=== PATIENT | female | born 1980 | race Caucasian/White ===

== ENCOUNTER → 2016-04-10 | Outpatient (CLI) | payer OTHER ==
[~2016-04-10] MED LIST: LEVO100T PO; MULT-506 PO
[2016-04-10 14:54] LABS: PREG INTERNAL NEGATIVE QC NEG CLEAR BACKGROUND; PREG INTERNAL POSITIVE QC POS CONTROL LINE
== END | disposition home or self-care (01) ==
LOC: C.LAB1850 14:15
PROVIDERS: ATTEND Obstetrics & Gynecology
DX: Z30.09 Encounter for other general counseling and advice on contraception (principal)

== ENCOUNTER → 2016-07-18 | Outpatient (CLI) | payer OTHER ==
--- NOTE | 2016-07-18 13:17 | DIAGNOSTIC IMAGING REPORT ---
CHEST 2 VIEWS ROUTINE CLINICAL HISTORY: COUGH dyspnea COMPARISON STUDY: 03/06/2015 FINDINGS: The bones soft tissues and hemidiaphragms are normal. The cardiomediastinal silhouette is normal. The lungs are clear. The pulmonary vasculature is normal. IMPRESSION: Negative chest. Electronically signed by: Rashel Hanley M.D. 07/18/2016 1:15 PM Dictated Date/Time: 07/18/2016 1:14 PM
== END ==
LOC: C.RAD1850 12:59
PROVIDERS: ATTEND Nurse Practitioner Family
DX: R05 Cough (principal); R06.00 Dyspnea, unspecified; R50.9 Fever, unspecified

== ENCOUNTER → 2017-03-25 | Outpatient (CLI) | payer OTHER ==
--- NOTE | 2017-03-25 09:21 | DIAGNOSTIC IMAGING REPORT ---
LUMBAR SPINE 2 OR 3 VIEWS CLINICAL HISTORY: 36 years-old Female presenting with RIGHT LEG NUMBNESS. TECHNIQUE: Frontal and lateral views of the lumbar spine were obtained. COMPARISON: 05/24/2011. FINDINGS: No scoliosis. Normal lumbar lordosis. Vertebral bodies maintain normal height and alignment. Intervertebral disc spaces maintained. No advanced degenerative change. No radiographic evidence of osseous neural foraminal narrowing. No compression deformity or evidence of subluxation. An intrauterine device projects over the pelvis. IMPRESSION: Normal lumbar spine. Electronically signed by: Yonas Benites M.D. 03/25/2017 9:20 AM Dictated Date/Time: 03/25/2017 9:19 AM
--- NOTE | 2017-03-25 09:23 | DIAGNOSTIC IMAGING REPORT ---
RIGHT FEMUR 4 VIEWS HISTORY: RIGHT LEG NUMBNESS COMPARISON: None. FINDINGS: There is no fracture or dislocation. Soft tissues are unremarkable. No radiopaque foreign bodies. There is a femoral head osteophyte consistent with mild degenerative change. IMPRESSION: No fractures. Electronically signed by: Eduardo Scott M.D. 03/25/2017 9:21 AM Dictated Date/Time: 03/25/2017 9:21 AM
== END | disposition home or self-care (01) ==
LOC: C.RDSM 12:21
PROVIDERS: ATTEND Family Medicine
DX: R20.0 Anesthesia of skin (principal)